=== PATIENT | female | born 1950 | race Caucasian/White ===

== ENCOUNTER 2021-03-09 13:40 | Outpatient (CLI) | payer MEDICARE, SELFPAY ==
--- NOTE | ~2021-03-09 | DEXA_ITS ---
Bone Density Report Name: Alicia Patel Age: 70 Sex: Female Ethnicity: White Date of : 1950 Indication: postmenopausal; Referring Provider: Cindi Thompson Study: Bone densitometry was performed. Exam Date: March 09, 2021 Accession number: [id number] Bone Density: Region BMD T-score Z-score Classification AP Spine (L1-L4) 1.149 0.9 3.0 Normal Femoral Neck (Left) 0.724 -1.1 0.6 Osteopenia Total Hip (Left) 0.900 -0.3 1.1 Normal Total Hip Bilateral Avg 0.881 -0.5 1.0 Normal Femoral Neck (Right) 0.725 -1.1 0.6 Osteopenia Total Hip (Right) 0.862 -0.7 0.8 Normal World Health Organization criteria for BMD impression classify patients as: Normal (T-score at or above -1.0), Osteopenia (T-score between -1.0 and -2.5), or Osteoporosis (T-score at or below -2.5). 10-year Fracture Risk(1): Major Osteoporotic Fracture 8.4% Hip Fracture 0.9% Reported Risk Factors: [place] (), Neck BMD=0.725, BMI=33.1 (1) FRAX(R) Version 3.08. Fracture probability calculated for an untreated patient. Fracture probability may be lower if the patient has received treatment. Previous Exams: Region Exam Age BMD T-score BMD Change BMD Change Date g/cm2 vs Baseline vs Previous AP Spine(L1-L4) 03/09/2021 70 1.149 0.9 -0.009(-0.8%)# -0.011(-0.9%)# 11/18/2010 60 1.160 1.0 0.002(0.2%) -0.032(-2.7%)* 06/28/2007 56 1.192 1.3 0.035(3.0%)* 0.035(3.0%)* 02/29/2004 53 1.157 1.0 Total Hip(Left) 03/09/2021 70 0.900 -0.3 -0.023(-2.5%)# -0.023(-2.5%) 06/06/2017 66 0.924 -0.2 0.000(0.0%)# 0.036(4.1%)# 11/18/2010 60 0.887 -0.4 -0.036(-3.9%)* -0.037(-4.1%)* 06/28/2007 56 0.925 -0.1 0.001(0.1%) 0.001(0.1%) 02/29/2004 53 0.924 -0.2 Total Hip(Right) 03/09/2021 70 0.862 -0.7 -0.009(-1.1%)# -0.041(-4.6%)* 06/06/2017 66 0.903 -0.3 0.032(3.6%)# 0.043(5.0%)# 11/18/2010 60 0.859 -0.7 -0.012(-1.3%) -0.006(-0.7%) 06/28/2007 56 0.865 -0.6 -0.006(-0.7%) -0.006(-0.7%) 02/29/2004 53 0.871 -0.6 *Denotes significance at 95% confidence level, LSC for AP Spine = 0.022 g/cm2, LSC for Total Hip = 0.027 g/cm2 Clinical Information Provided by Patient: Has used the following medications: Vitamin D, Calcium Patient maximum height was 64 Does not regularly consume dairy products Drinks caffeinated beverages Onset of menses at age 13 Number of children 2 Impression: The
--- NOTE | ~2021-03-09 | MM_ITS ---
EXAMINATION: MM screening festus BI w xiao HISTORY: Screening mammogram TECHNIQUE: Craniocaudal and mediolateral oblique 3-D tomosynthesis images were obtained and synthetic 2-D images were generated. CAD analysis was submitted and interpreted. COMPARISON: 04/06/2019, 12/02/2016, 12/07/2014 bilateral digital screening mammogram examinations BREAST PARENCHYMAL COMPOSITION: The breasts are almost entirely fatty. FINDINGS: There is no evidence of suspicious mass, calcification, or architectural distortion to sugg est malignancy in either breast. There has been no suspicious interval change. IMPRESSION: 1. No mammographic evidence of malignancy. 2. Recommend routine screening mammography in one year. BI-RADS Category 1: Negative Reviewed, dictated and finalized at location A.
== END 2021-03-09 13:41 | disposition home or self-care (01) ==
PROVIDERS: PCP Family Medicine; Visit Provider Physician Assistant
DX: Z12.31 Encounter for screening mammogram for malignant neoplasm of breast (principal); Z78.0 Asymptomatic menopausal state; M85.851 Other specified disorders of bone density and structure, right thigh; M85.852 Other specified disorders of bone density and structure, left thigh
CPT/HCPCS: 77063; 77067; 77080

== ENCOUNTER 2021-06-14 13:20 | Outpatient (RCR) | payer MEDICARE, SELFPAY ==
--- NOTE | 2021-06-14 14:43 | PTOPEVAL ---
PHYSICAL THERAPY EVALUATION Thank you for referring Alicia Patel to [facility].? Alicia was evaluated for the dx of BPPV. The patient is scheduled to be seen for therapy?prn (determined through phone discussion 1x a week) for up to 4 weeks. Please review, sign, date and return this plan of care RIMMA. I agree with and certify that the following plan of care is medically necessary. Referring Physician Date Attending Provider: Osbaldo Underwood MD *PT Outpatient Evaluation Start: 06/14/21 13:34 Freq: Status: Active Protocol: Document 06/14/21 13:35 MLV (Rec: 06/14/21 14:26 MLV [id number]) Therapy Assessment Status Assessment Status Evaluation Evaluation Information Problem Diagnosis vertigo Onset end of April Cause no event to provoke Additional Evaluation Detail The patient reports having hearing loss since 2013 and has had vertigo for a couple times a year, starting back in 2013. The patient was treated with steroids and recovered. This time, in April, the pt woke up with severe vertigo and feeling off balanced and it lasted a week. The patient took meclazine then saw Dr. Underwood on 05/31. The pt was given steroids and got better after them. This Saturday, the pt had symptoms return. The patient had nausea this time and symptoms lasted 1.5 days. The pt did the Jett technique to get relief. Pain Assessment Timing of Pain Assessment Timing of Pain Assessment Assessment Self Report Self Report Pain Level 0 Pain Score Pain Score 0: Self Report Cervical and Lumbar ROM Cervical ROM Reason Not Measured WFL/Left,WFL/Right Upper Extremity Range of Motion General Upper Extremity Range of Motion Reason Not Measured WFL/Left,WFL/Right Lower Extremity Range of Motion General Lower Extremity Range of Motion Reason Not Measured WFL/Left,WFL/Right Lower Extremity Muscle Strength Testing General Lower Extremity Strength Reason Not Measured WFL/Left,WFL/Right Gait Assessment Gait Pattern Assessment Gait Pattern No Deviations/Normal Vestibular Evaluation Vestibular Medical Information Past Vestibular History CVA,Head Injury,Headaches Medical History Comments fell and hit head 2018-no vertigo response with this
--- NOTE | 2021-06-21 12:01 | PCPTNOTE ---
Patient called today for update as planned with PT. Pt reports being symptom free this week. The patient instructed to stop exercise and monitor symptoms for a week. Pt to call in a week for another follow up, to call earlier if symptoms return. Plan to continue phone call monitoring of symptoms to assure full recovery.
--- NOTE | 2021-06-28 12:36 | PCPTNOTE ---
Patient called and reports to still be symptom free and will call again next week for further update. No skilled PT needs at this time.
--- NOTE | 2021-07-07 09:43 | PCPTNOTE ---
PHYSICAL THERAPY DISCHARGE Attending Provider: Osbaldo Trivedi MD Patient:Alicia Patel Date of :1950 Patient has not returned for any further treatments since 06/14/2021 due to being free of symptoms after her evaluation; therefore she will be discharged at this time. PT has spoke with pt on the phone weekly and remains symptom free, therefore, agreed that no further PT needed at this time. Patient?s initial visit was on 06/14/2021 13:30 and she had a total of 1 visit. The goals have been met. Thank you for referring this patient to [facility]. Please review, sign, date and return this discharge summary RIMMA. I have been updated about the patient's current status and I agree with discharge from the above service at this time. Referring Physician Date
== END 2021-07-07 12:34 | disposition home or self-care (01) ==
LOC: ANHPT 13:20
PROVIDERS: PCP Family Medicine; Visit Provider Otolaryngology
DX: H81.10 Benign paroxysmal vertigo, unspecified ear (principal); H81.09 Meniere's disease, unspecified ear; H81.20 Vestibular neuronitis, unspecified ear; R26.89 Other abnormalities of gait and mobility
CPT/HCPCS: 97110; 97161

== ENCOUNTER 2022-04-25 00:54 | Day surgery (SDC) | payer MEDICARE, OTHER, SELFPAY ==
[2022-04-03 13:51] VITALS: BMI 30.2
--- NOTE | 2022-04-24 16:15 | WPDANESEPPF ---
Anes - Initial Pre Proc Eval Procedure: Operation Date: 04/25/22 12:30 Proposed Procedures p Colonoscopy - Shelton Cain MD Date/Time: 04/24/22 16:15 Surgeon: Shelton Cain MD Pre Op Diagnosis: positive cologuard Patient Data Age: 71 Gender: F Height: 1.63 m Weight: 80 kg Allergies Allergy/AdvReac Type Severity Reaction Status Date / Time hydrocodone Allergy Unknown Nausea Verified 04/25/22 10:15 Home Medications Medication Instructions Recorded Confirmed Type aspirin 325 mg tablet 325 mg PO DAILY 09/29/19 04/25/22 History vit C 250 mg-vit E 90 mg-zinc 40 1 tablet PO BID 09/29/19 04/25/22 History mg-copper 1 [id number] capsule (PreserVision AREDS-2) meclizine 12.5 mg tablet 12.5 mg PO QID PRN dizziness #30 04/19/21 04/25/22 Rx tabs cholecalciferol (vitamin D3) 25 25 mcg PO DAILY 08/03/21 04/25/22 History mcg (1,000 unit) capsule cyclobenzaprine 10 mg tablet See Rx Instructions .Route 09/25/21 04/25/22 Rx .COMPLEX #90 tabs atorvastatin 10 mg tablet See Rx Instructions .Route 10/05/21 04/25/22 Rx .COMPLEX #90 tabs levothyroxine 100 mcg tablet See Rx Instructions .Route 10/05/21 04/25/22 Rx .COMPLEX #90 tabs doxazosin 4 mg tablet See Rx Instructions .Route 12/25/21 04/25/22 Rx .COMPLEX #90 tabs naproxen 500 mg tablet See Rx Instructions .Route 12/25/21 04/25/22 Rx .COMPLEX #180 tabs calcium carbonate 600 mg-vitamin 1 tablet PO DAILY 04/03/22 04/25/22 History D3 5 mcg (200 unit) tablet Patient hx anesthesia problems: none Family hx anesthesia problems: none Results Review: All pre-operative results and documents have been reviewed as part of the pre-operative evaluation. PENDING SALE TO [facility] Past Medical History Medical History (Updated 04/25/22 @ 10:21 by Angel Nugent MD) BPPV (benign paroxysmal positional vertigo) CVA (cerebral vascular accident) (~1998) Essential (primary) hypertension Hepatitis C antibody test negative (~08/12/17) Hypertension Hypothyroidism, unspecified Menieres disease Metabolic syndrome Mixed hyperlipidemia Obesity (BMI 30-39.9) Surgical History Surgical History History of adenoidectomy History of colonoscopy (~01/16/08) History of tonsillectomy Hx of cholecystectomy S/P D&C (status post dilation and curettage) 08-13-2019 Family History Family History Father Diabetes mellitus Family history of cardiovascular disease Family history of coronary artery disease Acute myocardial infarction Mother Cerebrovascular accident Diabetes mellitus Hypertension Sibling Diabetes mellitus Grandparent Diabetes mellitus Cerebrovascular accident Grandparent Cancer Social History Social History Smoking status: Never smoker Alcohol intake: never Substance use: never Substance use type: does not use Living arrangements: with family Spiritual care concerns: No Anes - Eval Final PreProcedure Day of Procedure 04/24/22 16:15 Patient weight: obese Heart: regular rate and rhythm Lungs: clear to auscultation and normal air movement Airway: Mallampati scale class II Neurological: alert and oriented Last oral intake: >/= 8 hours ASA classification: III Emergent: no Anesthetic plan: proceed Anesthesia type and monitoring: general GIVS Results Review: All pre-operative results and documents have been reviewed as part of the pre-operative evaluation. Informed Consent: The patient's anesthetic plan and its attendant risks and benefits were discussed with the patient/family/POA. Questions were solicited and answers provided to the satisfaction of the patient/family/POA.
[2022-04-25 10:18] VITALS: BP 149/86; PULSE 70; RESP 16; TEMP 36.4; O2SAT 98
[2022-04-25] MEDS: LACTATED RINGERS 1,000 ML 150 ML IV CONT (10:22)
--- NOTE | 2022-04-25 11:35 | PM.HPGS ---
History of Present Illness History of Present Illness Consent: Risks, benefits, and alternatives have been discussed and questions answered. Patient agrees to proceed with procedure. Chief complaint: positive cologuard Narrative: Alicia Patel is a 71 year old female with positive cologuard, last colonoscopy 12 years ago Review of Systems Constitutional: Constitutional: Denies headache(s) and Denies weakness Eyes: Eyes: Denies blurry vision ENT: Reports Normal hearing present, Denies headache(s) and Denies neck pain Cardiovascular: Cardiovascular: Denies chest pain and Denies dyspnea Respiratory: Respiratory: Denies dyspnea Gastrointestinal: Gastrointestinal: Reports no additional gastrointestinal complaints Genitourinary: Genitourinary: Denies dysuria Musculoskeletal: Musculoskeletal: Denies neck pain Integumentary/Breasts: Skin/Breast: Denies dry skin Neurologic: Reports Normal hearing present, Denies headache(s) and Denies weakness Psychiatric: Psychiatric: Denies anxiety Endocrine: Endocrine: Denies change in body appearance Hematologic/Lymphatic: Hematologic/Lymphatic: Denies easy bleeding Allergic/Immunologic: Allergic/Immunologic: Denies urticaria PMFSH Past Medical History Medical History (Updated 04/25/22 @ 10:21 by Angel Nugent MD) BPPV (benign paroxysmal positional vertigo) CVA (cerebral vascular accident) (~1998) Essential (primary) hypertension Hepatitis C antibody test negative (~08/12/17) Hypertension Hypothyroidism, unspecified Menieres disease Metabolic syndrome Mixed hyperlipidemia Obesity (BMI 30-39.9) Surgical History Surgical History History of adenoidectomy History of colonoscopy (~01/16/08) History of tonsillectomy Hx of cholecystectomy S/P D&C (status post dilation and curettage) 08-13-2019 Family History Family History Father Diabetes mellitus Family history of cardiovascular disease Family history of coronary artery disease Acute myocardial infarction Mother Cerebrovascular accident Diabetes mellitus Hypertension Sibling Diabetes mellitus Grandparent Diabetes mellitus Cerebrovascular accident Grandparent Cancer Social History Social History Smoking status: Never smoker Alcohol intake: never Substance use: never Substance use type: does not use Living arrangements: with family Spiritual care concerns: No Meds Home Medications and Allergies Home Medications Medication Instructions Recorded Confirmed Type aspirin 325 mg tablet 325 mg PO DAILY 09/29/19 04/25/22 History vit C 250 mg-vit E 90 mg-zinc 40 1 tablet PO BID 09/29/19 04/25/22 History mg-copper 1 [id number]-vzbdox capsule (PreserVision AREDS-2) meclizine 12.5 mg tablet 12.5 mg PO QID PRN dizziness #30 04/19/21 04/25/22 Rx tabs cholecalciferol (vitamin D3) 25 25 mcg PO DAILY 08/03/21 04/25/22 History mcg (1,000 unit) capsule cyclobenzaprine 10 mg tablet See Rx Instructions .Route 09/25/21 04/25/22 Rx .COMPLEX #90 tabs atorvastatin 10 mg tablet See Rx Instructions .Route 10/05/21 04/25/22 Rx .COMPLEX #90 tabs levothyroxine 100 mcg tablet See Rx Instructions .Route 10/05/21 04/25/22 Rx .COMPLEX #90 tabs doxazosin 4 mg tablet See Rx Instructions .Route 12/25/21 04/25/22 Rx .COMPLEX #90 tabs naproxen 500 mg tablet See Rx Instructions .Route 12/25/21 04/25/22 Rx .COMPLEX #180 tabs calcium carbonate 600 mg-vitamin 1 tablet PO DAILY 04/03/22 04/25/22 History D3 5 mcg (200 unit) tablet Allergies Allergy/AdvReac Type Severity Reaction Status Date / Time hydrocodone Allergy Unknown Nausea Verified 04/25/22 10:15 Vital Signs Vital Signs - 24 hr 04/25/22 10:18 Temperature 97.6 F Pulse Rate 70 Respiratory Rate 16 Blood Pressure 149/86 H Pulse Oximet
[2022-04-25 12:05] VITALS: BP 114/67; PULSE 66; RESP 18; O2SAT 93
[2022-04-25 12:15] VITALS: BP 115/73; PULSE 60; RESP 15; O2SAT 97
[2022-04-25 12:25] VITALS: BP 138/82; PULSE 59; RESP 20; O2SAT 100
== END 2022-04-25 12:40 | disposition home or self-care (01) ==
PROVIDERS: PCP Family Medicine; Visit Provider Internal Medicine Gastroenterology
PROC: 0DJD8ZZ Inspection of Lower Intestinal Tract, Via Natural or Artificial Opening Endoscopic (ICD-10-PCS; CPT 45378; principal; 2022-04-25 12:30)
DX: R19.5 Other fecal abnormalities (principal); D12.2 Benign neoplasm of ascending colon; D12.4 Benign neoplasm of descending colon; K57.30 Diverticulosis of large intestine without perforation or abscess without bleeding; K64.8 Other hemorrhoids; I10 Essential (primary) hypertension; E03.9 Hypothyroidism, unspecified; E78.2 Mixed hyperlipidemia; Z86.73 Personal history of transient ischemic attack (TIA), and cerebral infarction without residual deficits; E66.9 Obesity, unspecified; Z68.33 Body mass index [BMI] 33.0-33.9, adult; Z79.82 Long term (current) use of aspirin
CPT/HCPCS: 45385; 88305; J2704; J7120

== ENCOUNTER → 2023-06-04 11:03 | Outpatient (CLI) | payer MEDICARE, OTHER, SELFPAY ==
--- NOTE | ~2023-06-04 | XR_ITS ---
XR knee RT min 4V 06/04/2023 11:22 Indication: Right knee pain Procedure: 4 views right knee Comparison: No prior studies for comparison. Findings: There is mild tricompartment osteoarthritis of the right knee. No fracture, subluxation or dislocation. No significant joint effusion. No foreign bodies. Impression: 1: Mild tricompartment osteoarthritis of the right knee. Reviewed, dictated and finalized at location L. Impression: 1: Mild tricompartment osteoarthritis of the right knee.
== END ==
PROVIDERS: PCP Family Medicine; Visit Provider Family Medicine
DX: M17.11 Unilateral primary osteoarthritis, right knee (principal)
CPT/HCPCS: 73564

== ENCOUNTER 2023-09-23 15:07 | Outpatient (CLI) | payer MEDICARE, OTHER, SELFPAY ==
--- NOTE | ~2023-09-23 | MM_ITS ---
EXAMINATION: MM screening festus BI w xiao HISTORY: Screening TECHNIQUE: Craniocaudal and mediolateral oblique 3-D tomosynthesis images were obtained and synthetic 2-D images were generated. CAD analysis was submitted and interpreted. COMPARISON: Comparison to multiple prior studies sequentially, with oldest reviewed study dated 11/26. BREAST PARENCHYMAL COMPOSITION: Breast composed of scattered areas of fibroglandular density FINDINGS: There are developing asymmetries in the upper outer quadrant of the right breast, middle th ird. The left breast is stable without evidence for malignancy. IMPRESSION: 1. Developing right breast asymmetries. 2. Additional spot compression and mediolateral views with possible follow-up breast ultrasound recom mended. BI-RADS Category 0: Incomplete: Needs additional imaging evaluation. Reviewed, dictated and finalized at location A. SCOPIC INSTRUMENT MECHANIC IMPRESSION: 1. Developing right breast asymmetries. 2. Additional spot compression and mediolateral views with possible follow-up b reast ultrasound recommended. BI-RADS Category 0: Incomplete: Needs additional imaging evaluation.
== END 2023-09-23 15:08 | disposition home or self-care (01) ==
LOC: ANHIMG 15:11
PROVIDERS: PCP Family Medicine; Visit Provider Family Medicine
DX: Z12.31 Encounter for screening mammogram for malignant neoplasm of breast (principal); R92.8 Other abnormal and inconclusive findings on diagnostic imaging of breast
CPT/HCPCS: 77063; 77067

== ENCOUNTER 2023-11-08 09:42 | Outpatient (CLI) | payer MEDICARE, OTHER, SELFPAY ==
--- NOTE | ~2023-11-08 | MR_ITS ---
MRI of the right calf CLINICAL HISTORY: Pain TECHNIQUE: Axial T1-weighted and STIR images, coronal T1-weighted and STIR images, and sagittal T1-we ighted and STIR images were acquired. FINDINGS: Bone marrow signals are unremarkable. No evidence of fracture, bone marrow edema, or osteit is. No periosteal reaction. No evidence for medial tibial stress syndrome. Visualized musculature in the calf is unremarkable. No muscle atrophy or edema identified. Visualized tendons appear intact. Subcutaneous soft tissues are unremarkable. No abnormal mass lesion or fluid collection identified. IMPRESSION: Unremarkable exam. Reviewed, dictated and finalized at location . QUALITY ENGINEER IMPRESSION: Unremarkable exam.
--- NOTE | ~2023-11-08 | MR_ITS ---
EXAMINATION: MR knee RT wo con DATE: 11/08/2023 10:36 INDICATION: Right knee pain TECHNIQUE: Magnetic resonance imaging (MRI) of the right knee was performed without intravenous contr ast. Sequences included coronal PD-weighted FSE, coronal PD-weighted FS FSE, sagittal T2-weighted FS E, sagittal PD-weighted FS FSE and axial PD weighted fat saturated FSE. COMPARISON: None. FINDINGS: Medial compartment: Complex tear at the posterior horn of the medial meniscus which includes both radial and longitudinal components and involving at least the inner two thirds of the meniscus. Mild partial-thickness carti casey loss and chondral surface irregularity along the anterior to central weightbearing medial femora l condyle and along the anterior medial tibial plateau. There are couple small but with deeper chondr al fissure involving greater than 50% the cartilage thickness at the anterior weightbearing medial fe moral condyle. Lateral compartment: Lateral meniscus is normal. Articular cartilage is normal. Patellofemoral compartment: Deep chondral ulceration at the patellar apical ridge and medial facet with minimal underlying cortic al irregularity and a couple tiny foci of subarticular edema-like signal change. A severe partial thi ckness cartilage loss but with deep fissuring and additional small focus of subarticular edema-like s ignal change at the medial side of the lateral patellar facet. Partial-thickness chondral ulceration involving greater than 50% the cartilage thickness at the inferior aspect of the medial trochlea and less severe but with some superimposed chondral fissuring at the trochlear groove. Ligaments and tendons: Anterior and posterior cruciate ligaments are normal. The medial collateral ligament and fibular maribel ateral ligament complex are normal. Moderate size enthesophyte at the patellar insertion of the other jones normal quadriceps tendon. Patellar tendon is normal. The visualized medial and lateral hamstring tendons as well as the iliotibial band are normal. Fluid: Minimal right knee joint effusion. 9 x 8 x 5 mm loose osteochondral body in the recess anterior to th e intercondylar notch. Osseous/other: Small multilobulated intraosseous ganglion cyst in the proximal tibia which appears to arise from the region of the posterior root of the medial meniscus. No fracture or pathologic marrow replacing proc ess. IMPRESSION: 1. Complex tear of the posterior horn of the medial meniscus. 2. 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 3. Mild osteoarthritis with moderate grade chondromalacia in the medial compartment. Reviewed, dictated and finalized at location A. SPEC IMPRESSION: 1. Complex tear of the posterior horn of the medial meniscus. 2. 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 3. Mild osteoarthritis with moderate grade chondromalacia in the medial compart ment.
== END 2023-11-08 09:43 ==
LOC: GOSHIMG 09:43
PROVIDERS: PCP Family Medicine; Visit Provider Family Medicine
DX: R29.898 Other symptoms and signs involving the musculoskeletal system (principal); S83.231A Complex tear of medial meniscus, current injury, right knee, initial encounter; M17.11 Unilateral primary osteoarthritis, right knee; M22.41 Chondromalacia patellae, right knee; X58.XXXA Exposure to other specified factors, initial encounter
CPT/HCPCS: 73718; 73721

== ENCOUNTER → 2023-11-12 14:18 | Outpatient (CLI) | payer MEDICARE, OTHER, SELFPAY ==
--- NOTE | ~2023-11-12 | US_ITS ---
EXAMINATION: US soft tissue UE DATE: 11/12/2023 14:33 INDICATION: Left upper extremity lump. TECHNIQUE: Multiple grayscale and Doppler ultrasound images of the left upper extremity were obtained . COMPARISON: None FINDINGS: In the patient's area of concern in left upper arm, there is ill-defined 4 mm mass that is isoechoic to surrounding subcutaneous fat. IMPRESSION: 1. Ill-defined 4 mm subcutaneous mass in left upper arm, likely inflammation or a lipoma. Reviewed, dictated and finalized at location A. NING OFFICER
== END ==
PROVIDERS: PCP Family Medicine; Visit Provider Family Medicine
DX: R22.32 Localized swelling, mass and lump, left upper limb (principal)
CPT/HCPCS: 76882

== ENCOUNTER 2025-01-26 12:43 | Outpatient (CLI) | payer MEDICARE, OTHER, SELFPAY ==
--- NOTE | ~2025-01-26 | DEXA_ITS ---
Bone Density Report Name: PEIPTO MASSEY Age: 74 Sex: Female Ethnicity: White Date of : 1950 Indication: postmenopausal; screening for osteoporosis; Referring Provider: JT STINSON Study: Bone densitometry was performed. Exam Date: January 26, 2025 Accession number: [id number] Bone Density: Region BMD T-score Z-score Classification AP Spine(L1-L4) 1.252 1.9 4.2 Normal Femoral Neck (Left) 0.675 -1.6 0.4 Osteopenia Total Hip (Left) 0.902 -0.3 1.4 Normal Femoral Neck (Right) 0.653 -1.8 0.2 Osteopenia Total Hip (Right) 0.843 -0.8 0.9 Normal Total Hip Mean 0.872 -0.6 1.2 Normal World Health Organization criteria for BMD impression classify patients as: Normal (T-score at or above -1.0), Osteopenia (T-score between -1.0 and -2.5), or Osteoporosis (T-score at or below -2.5). 10-year Fracture Risk(1): Major Osteoporotic Fracture 11% Hip Fracture 2.2% Reported Risk Factors: [place] (), Neck BMD=0.653, BMI=29.6 (1) FRAX(R) Version 3.08. Fracture probability calculated for an untreated patient. Fracture probability may be lower if the patient has received treatment. Previous Exams: Region Exam Age BMD T-score BMD Change BMD Change Date g/cm2 vs Baseline vs Previous AP Spine (L1-L4) 01/26/2025 74 1.252 1.9 0.103 (9.0%)* 0.103 (9.0%)* 03/09/2021 70 1.149 0.9 Total Hip(Left) 01/26/2025 74 0.902 -0.3 -0.022 (-2.3%) 0.002 (0.2%) 03/09/2021 70 0.900 -0.3 -0.023 (-2.5%) -0.023 (-2.5%) 06/06/2017 66 0.924 -0.2 Total Hip(Right) 01/26/2025 74 0.843 -0.8 -0.060 (-6.6%) -0.019 (-2.2%) 03/09/2021 70 0.862 -0.7 -0.041 (-4.6%) -0.041 (-4.6%) 06/06/2017 66 0.903 -0.3 *Denotes significance at 95% confidence level, LSC for AP Spine = 0.022 g/cm2, LSC for Total Hip = 0.027 g/cm2 Clinical Information Provided by Patient: Has used the following medications: Vitamin D, Calcium Patient maximum height was 64 No regular weight bearing exercise Does not regularly consume dairy products Drinks caffeinated beverages Onset of menses at age 13 Number of children 2 Impression: The patient has low bone mass, based on the Right Femoral Neck T-score. The patient has an estimated ten-year risk of hip fracture of 2.2% and an estimated ten-year risk of major fracture of 11%, based on the WHO FRAX algorithm. No significant bone loss was observed. Discussion: BONE DENSITY IS LOW AT ONE OR MORE SKELETAL SITES. This patient's lowest T-score is low at one or more skeletal sites. It meets the World Health Organization's (WHO) criteria for ?low bone mass? (T-score between -1.0 and -2.5). The patient's 10-year risk of fracture as calculated by FRAX is less than the threshold where pharmacological therapy is recommended by the National Osteoporosis Foundation (NOF). However, all treatment decisions require clinical judgment and consideration of individual patient factors, including patient preferences, comorbidities, previous drug use, risk factors not captured in the FRAX model (e.g., frailty, falls, vitamin D deficiency, increased bone turnover, interval significant decline in bone density) and possible under or overestimation of fracture risk by FRAX. The patient should follow a healthful lifestyle (good nutrition with adequate calcium and vitamin D, and appropriate weight-bearing exercise). Follow-Up: Consider repeating this study in 2 to 3 years to reassess this patient's status, or sooner if there is some new clinical indication. Reported by: TYRA on 01/26/2025 1:38:00 PM. Reviewed, dictated and finalized at location [facility] [place] [facility]ISION[facility]
--- OUTSIDE RECORDS SUMMARY | 2025-01-26 13:34 | XMS_ITS | Referral Summary ---
Author Organization [facility] Address [address] [place] [id number] Care Team Providers [place] Name Role Phone Chelo Holt DO Primary Care Provider [phone] Ortiz Gallardo MD Unavailable Encounters Date Type Department Care Team Description 01/22/[address] [facility] Surgery [address] [place] [id number] Jaz Reyes MD PhD Ductal carcinoma in situ (DCIS) of right breast (Primary Dx) 01/15/2025 Telephone [facility] Advanced Medicine Breast Imaging [facility] Advanced Medicine ([facility]) [address] [place] [id number] Adriane Mai Test Results (Right breast biopsy 01/13/25 ) 01/13/2025 11:00 AM CDT - 01/13/2025 11:59 PM CDT Hospital Encounter [facility] Imaging and Radiology [address] [place] [address] Abnormal mammogram Discharge Disposition: Discharge to home or self care 01/13/2025 10:12 AM CDT - 01/13/2025 11:59 PM CDT Hospital Encounter [facility] ` [address] [place] [id number] Abnormal mammogram Discharge Disposition: Discharge to home or self care 12/10/2024 8:05 AM RESIDENTIAL CARPET INSTALLER - 12/10/2024 11:59 PM RESIDENTIAL CARPET INSTALLER Hospital Encounter [facility] ` [address] [place] [phone] Unspecified lump in the right breast, upper outer quadrant Discharge Disposition: Discharge to home or self care 12/10/2024 8:05 AM RESIDENTIAL CARPET INSTALLER - 12/10/2024 11:59 PM [facility] Hospital Encounter [facility] Imaging and Radiology [address] [place] [phone] Unspecified lump in the right breast, upper outer quadrant Discharge Disposition: Discharge to home or self care 11/10/2024 10:14 AM RESIDENTIAL CARPET INSTALLER - 11/10/2024 11:59 PM [facility] Hospital Encounter [facility] Imaging and Radiology [address] [place] [phone] Visit for screening mammogram Discharge Disposition: Discharge to home or self care from Last 3 Months Allergies Active Allergy Reactions Criticality Noted Date Comments Hydrocodone-Acetaminophen Vomiting Low 01/16/2024 Medications atorvastatin (LIPITOR) 10 mg tabletIndications:h yperlipidemia Take 1 tablet (10 mg total) by mouth with lunch 4 Active doxazosin (CARDURA) 4 mg tabletIndications:h ypertension Take 1 tablet (4 mg total) by mouth nightly 4 Active levothyroxine (SYNTHROID) 88 mcg tabletIndications:h ypothyroidism Take 1 tablet (88 mcg total) by mouth every morning 4 Active meclizine (ANTIVERT) 12.5 mg tabletIndications:V ertigo Take 1 tablet (12.5 mg total) by mouth 3 (three) times a day as needed for dizziness or nausea 4 Active cyclobenzaprine (FLEXERIL) 10 mg tabletIndications:M uscle Spasm Take 1 tablet (10 mg total) by mouth 3 (three) times a day as needed for muscle spasms 4 Active cholecalciferol (VITAMIN D-3) [address]2204 unit capsuleIndications: Vitamin D Deficiency Take 1 capsule (10,000 Units total) by mouth every morning Active calcium carbonate-vitamin D3 1,250mg (500mg elemental) - 5 mcg (200 units) per tabletIndications:P revention of Vitamin D Deficiency Take 1 tablet by mouth every morning Active vit A/vit C/vit E/zinc/copper (PRESERVISION AREDS ORAL)Indications:mclaughlin pplement Take 1 tablet/capsul e by mouth 2 (two) times a day Active aspirin 81 mg chewable tablet Beginning on 03/21/24, take Aspirin 81mg daily. 4 Active acetaminophen (TYLENOL) 325 mg tabletIndications:P ain Take 2 tablets (650 mg total) by mouth every 6 (six) hours as needed for pain 4 Active docusate sodium (COLACE) 100 mg capsuleIndications: constipation,Stool Softener Take 1 capsule (100 mg total) by mouth 2 (two) times a day 30 capsule 4 Active lisinopriL (PRINIVIL,ZESTRIL) 5 mg tablet Take 1 tablet (5 mg total) by mouth daily 30 tablet 4 Active clopidogreL (PLAVIX) 75 mg tabletIndications:C erebral Thromboembolism Prevention Take 1 tablet (75 mg total) by mouth daily for 21 days . (Stop taking after last dose on 03/20/24.) 21 tablet 4 Active FLUoxetine (PROzac) 20 mg capsule Take 1 capsule (20 mg total) by mouth daily 30 capsule 11 4 025 Active gabapentin (NEURONTIN) 100 mg capsule TAKE 1 CAPSULE(100 MG) BY MOUTH THREE TIMES DAILY 90 capsule 5 5 Active Active Problems Problem Noted Date Diagnosed Date Acute CVA (cerebrovascular accident) 08/19/2024 Aneurysm 03/13/2024 Immunizations Immunization Administration Dates Next Due Influenza, Quadrivalent, Rec ombinant, Egg Free, Preservative Free, Intramuscular 07/30/2019 Influenza, Quadrivalent, Spl it, Preservative Free, Intramuscular 07/11/2018 Pneumococcal Polysaccharide PPV23 04/21/2018 Tdap 03/03/2019 Social History Tobacco Use Types Packs/Day Years Used Date Smoking Tobacco: Never Smokeless Tobacco: Never Tobacco Cessation:Counseling Given: Not Answered [facility] Utilities Answer Date Recorded In the past 12 months has e [employer], [employer], oil, or water [employer] threatened to shut off services in your home? No 08/20/2024 Social Connection and Isolat ion Panel [NHANES] Answer Date Recorded In a typical week, how many times do you talk on the phone with family, friends, or neighbors? More than three times a week 08/20/2024 How often do you get togethe r with friends or relatives? More than three times a week 08/20/2024 How often do you attend chur ch or yarsanism services? Never 08/20/2024 Do you belong to any clubs o r organizations such as adventist groups, unions, fraternal or athletic groups, or school groups? No 08/20/2024 How often do you attend meet ings of the clubs or organizations you belong to? Never 08/20/2024 Are you , , di vorced, , never , or living with a partner? 08/20/2024 AUDIT-C Answer Date Recorded Q1: How often do you have a drink containing alcohol? Never 04/21/2024 Q2: How many drinks containi ng alcohol do you have on a typical day when you are drinking? Patient does not drink Q3: How often do you have si x or more drinks on one occasion? Never 04/21/2024 Overall Financial Resource Strain (CARDIA) Answe r Date Recorded How hard is it for you to pa y for the very basics like food, housing, medical care, and heating? Not hard at all 08/20/2024 PHQ-2 Answer Date Recorded PHQ-2 Total Score (If total score is 3 or more points, staff should administer the PHQ-9) 0 08/20/2024 Hunger Vital Sign Answer Date Recorded Within the past 12 months, y ou worried that your food would run out before you got the money to buy more. Never true 08/20/20 24 Within the past 12 months, t he food you bought just didn't last and you didn't have money to get more. Never true 08/20/2024 PRAPARE - Transportation Answer Date Re corded In the past 12 months, has l ack of transportation kept you from medical appointments or from getting medications? No 04/2024 In the past 12 months, has l ack of transportation kept you from meetings, work, or from getting things needed for daily living? No 08/20/2024 PHQ-9 Answer Date Recorded PHQ-9 Total Score 0 08/20/2024 Housing Stability Vital Sign Answer Te e Recorded In the last 12 months, was t here a time when you were not able to pay the mortgage or rent on time? No 08/20/2024 In the past 12 months, how m any times have you moved where you were living? 0 08/20/2024 Homeless in the Last Year Not on file 2023 Personal Safety Answer Date Recorded Have you ever been in or are you currently in a harmful physical or emotional relationship or is someone making you feel afraid or unsafe? Denies 08/20/2024 Comments No Sex and Gender Information Value Date Recorded Sex Assigned at Not on file Legal Sex Female 9:44 AM RESIDENTIAL CARPET INSTALLER Gender Identity Female 01/15/2024 4:26 PM CDT Sexual Orientation Straight 01/15/2024 4: 26 PM CDT Last Filed Vital Signs Vital Sign Reading Time Taken Comments Blood Pressure 143/71 09/09/2024 10:31 AM RESIDENTIAL CARPET INSTALLER Pulse 71 09/09/2024 10:31 AM RESIDENTIAL CARPET INSTALLER Temperature 36.6 C (97.8 F) 08/20/2024 12:47 PM RESIDENTIAL CARPET INSTALLER Respiratory Rate 20 08/20/2024 12:47 PM RESIDENTIAL CARPET INSTALLER Oxygen Saturation 94% 08/20/2024 12:47 PM RESIDENTIAL CARPET INSTALLER Inhaled Oxygen Concentration - - Weight 81.6 kg (180 lb) 09/09/2024 10:31 AM RESIDENTIAL CARPET INSTALLER Height 162.6 cm (5' 4 ) 09/09/2024 10:31 AM RESIDENTIAL CARPET INSTALLER Body Mass Index 30.9 09/09/2024 10:31 AM RESIDENTIAL CARPET INSTALLER Plan of Treatment Not on file Medical Devices Implanted Type Area Shoemaker Apprentice Device Identifier Shelf Expiration Date Model / Serial / Lot C9 Inc. System Embolization Web Single Layer 8mm X 3mm W2-8-3 - [id number] Implanted:Qty: 1 on 03/13/2024 by Rocael Rivera MD at [facility] [employer] 09/12/2027 W2- 8-3 / / [id number] [employer] Ecrebo Device 5fr Closure Celt Acd Vascular Sterile Latex Free Disposable Frances Kclt-05 - [id number] Implanted:Qty: 1 on 08/19/2024 by Gallito Disla MD at [facility] [employer] 12/05/2026 KCLT-05 / / [id number] Procedures Procedure Name Priority Date/Time Associated Diagnosis Comments SURGICAL PATHOLOGY Routine 01/13/2025 1: 48 PM CDT Abnormal mammogram BRENT POST CLIP PLACEMENT RIGHT Schedule Routine, Read Routine (OP Routine) 01/13/2025 11:48 AM CDT Abnormal mammogram US GUIDED BREAST BIOPSY RIGHT Schedule Routine, Read Routine (OP Routine) 01/13/2025 11:39 AM CDT Abnormal mammogram US BREAST RIGHT LIMITED Schedule Routine, Read Routine (OP Routine) 12/10/2024 9:24 AM RESIDENTIAL CARPET INSTALLER Unspecified lump in the right breast, upper outer quadrant DIAGNOSTIC MAMMOGRAM RIGHT W BRENT Schedule Routine, Read Routine (OP Routine) 12/10/2024 8:23 AM RESIDENTIAL CARPET INSTALLER Unspecified lump in the right breast, upper outer quadrant SCREENING MAMMOGRAM BILATERAL W BRENT Schedule Routine, Read Routine (OP Routine) 11/10/2024 10:49 AM RESIDENTIAL CARPET INSTALLER Visit for screening mammogram from Last 3 Months Results * Surgical pathology (01/13/2025 1:48 PM CDT) Tissue (Breast biopsy, needle core) 01/13/2025 11:35 AM CDT Narrative PATHOLOGY CH - 01/15/2025 12:19 PM CDT [facility] results best viewed via link to PDF [facility] Department of Pathology [address] [place] [id number] Note to Patients: This report may contain a detailed description of human tissue sent by a health care provider to the laboratory for pathologic evaluation. The content of this report is essential for diagnosis and may provide important critical findings. This information may be unfamiliar to patients to review without a medical professional present. It is advised that the patient review this report in the presence of a health care provider who can answer questions and explain the details. Final Report with Addendum Patient Name: ALICIA PATEL Address: [address] [place] [id number] Gender: F : 1950 (Age: 74) Service: Location: Hospital #: [id number] Patient Type: Ancillary Taken: 01/13/2025 Received: 01/13/2025 Accessioned: 01/13/2025 Reported: 01/15/2025 Physician(s):Jose Verde DO Diagnosis: A. 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 Report Electronically Reviewed and Signed Out By Caroline Vera M.D. 01/15/2025 12:19:12 Procedure/Addenda: Breast Cancer Prognostic Panel Interpretation Breast Biomarker Reporting Template Test(s) Performed: ER, PgR Estrogen Receptor (ER) Status: Positive Percentage of Cells with Nuclear Positivity: 91-100% Average Intensity of Staining: Strong Test Type: Laboratory-developed test Primary Antibody: SP1 Scoring System: Jay Proportion Score: 5 Intensity Score: 3 Total Jay Score: 8 Progesterone Receptor (PgR) Status: Positive Percentage of Cells with Nuclear Positivity: 91-100% Average Intensity of Staining: Strong Test Type: Laboratory-developed test Primary Antibody: 1E2 Scoring System: Jay Proportion Score: 5 Intensity Score: 3 Total Jay Score: 8 Cold Ischemia and Fixation Times: Meet requirements specified in latest version of the ASCO / CAP Guidelines Testing Performed on Block Number(s): A1 METHODS Fixative: Formalin [facility] VERSION: Breast Biomarker Reporting 1.5.0.1 Arnulfo Cedillo M.D.Report Electronically Reviewed and Signed Out By Arnulfo Cedillo M.D. 01/19/2025 17:48:38 Specimen(s) Received: A: Right breast cores 9:00 6CMFN Microscopic Description: Core biopsy material demonstrates mildly to moderately pleomorphic ductal epithelial cells arranged in cribriform and papillary patterns against a hyalinized stroma [facility] IHC stain with appropriate control also reviewed demonstrates a surrounding myoepithelial layer around much of the periphery of the cellular nests. In summary, biopsy material demonstrates a ductal carcinoma with cribriform and papillary features. The differential diagnosis includes encapsulated papillary carcinoma and solid papillary carcinoma as well as others. Additionally, the entire lesion requires evaluation to exclude a definitively invasive component. ER/OR testing will be obtained and reported in an addendum. Clinical History: Abnormal mammogram Gross Description: The specimen is submitted in a single formalin filled container labeled ALICIA PATEL and right breast cores 9 o'clock 6 cm FN . It is 5 cores of fibrofatty tissue between 0.2 and 0.8 cm. All in one cassette. Removed from patient on 01/13/2025 at 11:35 o'clock and placed in formalin at 11:35 o'clock, removed from formalin 20:50 o'clock. Formalin fixation times are in compliance with ASCO/CAP guidelines. Myah Nick R.N., P.ASylvester/Arnulfo Cedillo M.D. REPORT IMAGES AND SCANNED DOCUMENTS, IF INCLUDED, ONLY VIEWABLE IN PDF VERSION OF REPORT The performance characteristics of some immunohistochemical stains, fluorescence in-situ hybridization tests and immunophenotyping by flow cytometry cited in this report (if any) were determined by the Surgical Pathology Department at [facility] as part of an ongoing it quality analyst program and in compliance with federally mandated regulations drawn from the Clinical Laboratory Improvement Act of 1988 (CLIA '88). Some of these tests rely on the use of analyte specific reagents and are subject to specific labeling requirements by the US Food and Drug Administration. Such diagnostic tests may only be performed in a facility that is certified by the Department of Health and Human Services as a high complexity laboratory under CLIA '88. The FDA has determined that such clearance or approval is not necessary. This test is used for clinical purposes. It should not be regarded as investigational or for research. Nevertheless, federal rules concerning the medical use of analyte specific reagents require that the following disclaimer be attached to the report: This test was developed and its performance characteristics determined by the Surgical Pathology Department [facility]. It has not been cleared or approved by the U. S. Food and Drug Administration. Note for decalcified specimens: This assay has not been validated on decalcified tissues. Results should be interpreted with caution given the possibility of false negativity on decalcified specimens Chelo Holt DO LAB PATHOLOGY ORDERABLES F inal Result PATHOLOGY [address] [place] [address] * Brent Post Clip Placement Right (01/13/2025 11:48 AM CDT) Anatomical Region Laterality Modality Breast Right Mammography 01/13/2025 11:5 2 AM CDT Addenda Addendum by Mary Perez MD on 01/18/2025 4:00 PM CDT ADDENDUM: Pathology from biopsy of the right breast showed ductal carcinoma in situ; please refer to pathology report for details. Pathology is malignant and concordant. Surgical management and MRI (unless there are contraindications to MRI) are recommended. Results and recommendations will be discussed with the patient by [facility] or referring provider staff and will be separately documented in the medical record. Electronically signed by: Mary Perez M.D. Impressions 01/13/2025 11:52 AM CDT Successful core needle biopsy of the RIGHT breast. Pathology is pending. ASSESSMENT: Post Procedure Mammograms for Marker Placement Electronically signed by: Mary Perez M.D. Narrative 01/13/2025 11:52 AM CDT EXAMINATION: RIGHT BREAST CORE BIOPSY UTILIZING SONOGRAPHIC GUIDANCE, PLACEMENT OF A BIOPSY TISSUE MARKER CLIP, AND RIGHT FULL FIELD DIGITAL MAMMOGRAM WITH DIGITAL BREAST TOMOSYNTHESIS HISTORY: Abnormal breast imaging. 74-year-old woman with screening detected right breast focal asymmetry in which an oval hypoechoic mass was noted within the region on ultrasound. Ultrasound guided core needle biopsy is requested to evaluate for malignancy. COMPARISON: 12/10/2024 BREAST PARENCHYMAL COMPOSITION: There are scattered areas of fibroglandular density. PROCEDURE AND FINDINGS: The risks and potential benefits of the procedures were discussed with the patient and written informed consent was obtained. After sterile preparation of the skin, 1% lidocaine and 2% lidocaine with epinephrine were utilized for local anesthesia. A small skin incision was made with a #11 scalpel blade. A 14G spring-loaded biopsy needle was then advanced through the skin incision to the edge of the lesion of interest at the 9 o'clock position 6 cm from the nipple from a lateral approach utilizing sonographic guidance. A total of 3 tissue cores were obtained through the lesion. A [place]-shaped tissue marker clip was then placed at the biopsy site. Hemostasis was achieved. Dermabond bandage and an ice pack were applied. There was no evidence of significant immediate complication. The patient was given verbal as well as written post procedural instructions prior to release from the department. The tissue cores were submitted to surgical pathology in formalin for histologic analysis. A two-view RIGHT digital mammogram, including digital breast tomosynthesis, obtained post procedure demonstrates that the tissue marker clip is in expected position. Procedure Note Mary Perez MD - 01/13/2025 EXAMINATION: RIGHT BREAST CORE BIOPSY UTILIZING SONOGRAPHIC GUIDANCE, PLACEMENT OF A BIOPSY TISSUE MARKER CLIP, AND RIGHT FULL FIELD DIGITAL MAMMOGRAM WITH DIGITAL BREAST TOMOSYNTHESIS HISTORY: Abnormal breast imaging. 74-year-old woman with screening detected right breast focal asymmetry in which an oval hypoechoic mass was noted within the region on ultrasound. Ultrasound guided core needle biopsy is requested to evaluate for malignancy. COMPARISON: 12/10/2024 BREAST PARENCHYMAL COMPOSITION: There are scattered areas of fibroglandular density. PROCEDURE AND FINDINGS: The risks and potential benefits of the procedures were discussed with the patient and written informed consent was obtained. After sterile preparation of the skin, 1% lidocaine and 2% lidocaine with epinephrine were utilized for local anesthesia. A small skin incision was made with a #11 scalpel blade. A 14G spring-loaded biopsy needle was then advanced through the skin incision to the edge of the lesion of interest at the 9 o'clock position 6 cm from the nipple from a lateral approach utilizing sonographic guidance. A total of 3 tissue cores were obtained through the lesion. A [place]-shaped tissue marker clip was then placed at the biopsy site. Hemostasis was achieved. Dermabond bandage and an ice pack were applied. There was no evidence of significant immediate complication. The patient was given verbal as well as written post procedural instructions prior to release from the department. The tissue cores were submitted to surgical pathology in formalin for histologic analysis. A two-view RIGHT digital mammogram, including digital breast tomosynthesis, obtained post procedure demonstrates that the tissue marker clip is in expected position. IMPRESSION: Successful core needle biopsy of the RIGHT breast. Pathology is pending. ASSESSMENT: Post Procedure Mammograms for Marker Placement Electronically signed by: Mary Perez M.D. Chelo Tahmina Vernace DO IMG MAMMO PROCEDURES Edite d Result - Final * US Guided Breast Biopsy Right (01/13/2025 11:39 AM CDT) Anatomical Region Laterality Modality Breast Right Ultrasound 01/13/2025 11:5 2 AM CDT Addenda Addendum by Mary Perez MD on 01/18/2025 4:00 PM CDT ADDENDUM: Pathology from biopsy of the right breast showed ductal carcinoma in situ; please refer to pathology report for details. Pathology is malignant and concordant. Surgical management and MRI (unless there are contraindications to MRI) are recommended. Results and recommendations will be discussed with the patient by [facility] or referring provider staff and will be separately documented in the medical record. Electronically signed by: Mary Perez M.D. Impressions 01/13/2025 11:52 AM CDT Successful core needle biopsy of the RIGHT breast. Pathology is pending. ASSESSMENT: Post Procedure Mammograms for Marker Placement Electronically signed by: Mary Perez M.D. Narrative 01/13/2025 11:52 AM CDT EXAMINATION: RIGHT BREAST CORE BIOPSY UTILIZING SONOGRAPHIC GUIDANCE, PLACEMENT OF A BIOPSY TISSUE MARKER CLIP, AND RIGHT FULL FIELD DIGITAL MAMMOGRAM WITH DIGITAL BREAST TOMOSYNTHESIS HISTORY: Abnormal breast imaging. 74-year-old woman with screening detected right breast focal asymmetry in which an oval hypoechoic mass was noted within the region on ultrasound. Ultrasound guided core needle biopsy is requested to evaluate for malignancy. COMPARISON: 12/10/2024 BREAST PARENCHYMAL COMPOSITION: There are scattered areas of fibroglandular density. PROCEDURE AND FINDINGS: The risks and potential benefits of the procedures were discussed with the patient and written informed consent was obtained. After sterile preparation of the skin, 1% lidocaine and 2% lidocaine with epinephrine were utilized for local anesthesia. A small skin incision was made with a #11 scalpel blade. A 14G spring-loaded biopsy needle was then advanced through the skin incision to the edge of the lesion of interest at the 9 o'clock position 6 cm from the nipple from a lateral approach utilizing sonographic guidance. A total of 3 tissue cores were obtained through the lesion. A [place]-shaped tissue marker clip was then placed at the biopsy site. Hemostasis was achieved. Dermabond bandage and an ice pack were applied. There was no evidence of significant immediate complication. The patient was given verbal as well as written post procedural instructions prior to release from the department. The tissue cores were submitted to surgical pathology in formalin for histologic analysis. A two-view RIGHT digital mammogram, including digital breast tomosynthesis, obtained post procedure demonstrates that the tissue marker clip is in expected position. us Chelo Holt DO [facility] MAMMO PROCEDURES Edite d Result - Final * US Breast Right Limited (12/10/2024 9:24 AM RESIDENTIAL CARPET INSTALLER) Anatomical Region Laterality Modality Breast Right Ultrasound 12/10/2024 9:58 AM RESIDENTIAL CARPET INSTALLER Impressions 12/10/2024 9:58 AM RESIDENTIAL CARPET INSTALLER Developing focal asymmetry in the upper outer right breast. On targeted ultrasound there is a oval hypoechoic mass identified at 9:00 about 6 cm from the nipple. Further evaluation with ultrasound-guided biopsy is recommended. Results and recommendations were discussed with the patient at the conclusion of the exam and all questions answered. Patient with the practice nurse will be scheduled to return to the breast center for right breast biopsy. OVERALL FINAL ASSESSMENT: SUSPICIOUS. BI-RADS Category 4B: Moderate suspicion for malignancy. RECOMMENDATION: Ultrasound-guided biopsy of the right breast. Electronically signed by: EVA DAVENPORT MD Narrative 12/10/2024 9:58 AM RESIDENTIAL CARPET INSTALLER EXAMINATION: RIGHT UNILATERAL DIGITAL DIAGNOSTIC MAMMOGRAM AND DIGITAL BREAST TOMOSYNTHESIS; RIGHT BREAST SONOGRAM HISTORY: 74-year-old female called back from screening mammogram for developing focal asymmetry upper outer right breast. Patient has had some reported weight loss over the last few years which was intentional. COMPARISON: Multiple priors dating back to 2019 TECHNIQUE: Full field digital mammographic views of the RIGHT breast were performed, including computer aided detection (CAD) and digital breast tomosynthesis (DBT). Directed ultrasound evaluation of the RIGHT breast was performed. BREAST PARENCHYMAL COMPOSITION: There are scattered areas of fibroglandular density. MAMMOGRAM FINDINGS: Focal asymmetry persists in the upper outer right breast on spot compression images. This has a wispy appearance on the lateral view with a more focal oval mass identified around 9:00 at mid depth. SONOGRAM FINDINGS: Targeted ultrasound demonstrates mixed echogenicity tissue within the right breast from 9-10:00. At 9:00, 6 cm from the nipple there is an oval hypoechoic mass with slightly lobulated margins which measures 6 x 7 mm. This is within a band of more dense tissue. There are some minimal internal vascularity and no significant posterior features. us Chelo Hughespolomiguel [facility] MAMMO PROCEDURES Final Result * (ABNORMAL) Diagnostic Mammogram Right W Brent (12/10/2024 8:23 AM RESIDENTIAL CARPET INSTALLER) Anatomical Region Laterality Modality Breast Right Mammography 12/10/2024 9:58 AM RESIDENTIAL CARPET INSTALLER Impressions 12/10/2024 9:58 AM RESIDENTIAL CARPET INSTALLER Developing focal asymmetry in the upper outer right breast. On targeted ultrasound there is a oval hypoechoic mass identified at 9:00 about 6 cm from the nipple. Further evaluation with ultrasound-guided biopsy is recommended. Results and recommendations were discussed with the patient at the conclusion of the exam and all questions answered. Patient with the practice nurse will be scheduled to return to the breast center for right breast biopsy. OVERALL FINAL ASSESSMENT: SUSPICIOUS. BI-RADS Category 4B: Moderate suspicion for malignancy. RECOMMENDATION: Ultrasound-guided biopsy of the right breast. Electronically signed by: EVA DAVENPORT MD Narrative 12/10/2024 9:58 AM RESIDENTIAL CARPET INSTALLER EXAMINATION: RIGHT UNILATERAL DIGITAL DIAGNOSTIC MAMMOGRAM AND DIGITAL BREAST TOMOSYNTHESIS; RIGHT BREAST SONOGRAM HISTORY: 74-year-old female called back from screening mammogram for developing focal asymmetry upper outer right breast. Patient has had some reported weight loss over the last few years which was intentional. COMPARISON: Multiple priors dating back to 2019 TECHNIQUE: Full field digital mammographic views of the RIGHT breast were performed, including computer aided detection (CAD) and digital breast tomosynthesis (DBT). Directed ultrasound evaluation of the RIGHT breast was performed. BREAST PARENCHYMAL COMPOSITION: There are scattered areas of fibroglandular density. MAMMOGRAM FINDINGS: Focal asymmetry persists in the upper outer right breast on spot compression images. This has a wispy appearance on the lateral view with a more focal oval mass identified around 9:00 at mid depth. SONOGRAM FINDINGS: Targeted ultrasound demonstrates mixed echogenicity tissue within the right breast from 9-10:00. At 9:00, 6 cm from the nipple there is an oval hypoechoic mass with slightly lobulated margins which measures 6 x 7 mm. This is within a band of more dense tissue. There are some minimal internal vascularity and no significant posterior features. Chelo Holt DO IMG MAMMO PROCEDURES Final Result * (ABNORMAL) Screening Mammogram Bilateral W Brent (11/10/2024 10:49 AM RESIDENTIAL CARPET INSTALLER) Anatomical Region Laterality Modality Breast Bilateral Mammography 11/10/2024 12:1 6 PM RESIDENTIAL CARPET INSTALLER Impressions 11/10/2024 12:16 PM RESIDENTIAL CARPET INSTALLER There is a developing focal asymmetry in the upper outer quadrant of the right breast with possibly subtle distortion on the right CC view. Additional imaging is recommended. FINAL ASSESSMENT: BI-RADS Category 0: Incomplete - Need Additional Imaging Evaluation. RECOMMENDATION: Findings in the right breast require additional evaluation. Diagnostic mammogram and possible ultrasound images of the right breast are recommended at this time. Electronically signed by: MD Rosalinda HELMS 11/10/2024 12:16 PM RESIDENTIAL CARPET INSTALLER EXAMINATION: BILATERAL SCREENING MAMMOGRAM COMPARISON: All prior mammograms dating back to 2019. TECHNIQUE: Full-field 2D and digital breast tomosynthesis (DBT) images were obtained. CAD was utilized. BREAST PARENCHYMAL COMPOSITION: There are scattered areas of fibroglandular density. FINDINGS: There is a developing focal asymmetry in the upper outer right breast with some questionable associated distortion on the right CC. No new suspicious abnormality in the left breast on mammogram. Self Screening Mammogram IMG MAMMO PROCEDURES Fi nal Result from Last 3 Months Insurance MEDICARE [facility] MEDICARE [facility] Advance Directives For more information, please contact: [phone] Documents on File Type Date Recorded Patient Recruiting Operations Consultant Expl anation ADVANCE DIRECTIVE 03/11/2024 9:47 PM POWER OF CLINICAL NURSING COORDINATOR-MEDICAL * Full Code (Latest Code Status on File) Date Activated Date Inactivated Comments 08/19/2024 11:24 PM 08/20/2024 8:17 PM * Full Code Date Activated Date Inactivated Comments 03/13/2024 6:55 AM 03/14/2024 3:29 PM Care Teams [place] Relationship Specialty Start Date End Date Chelo HoltDO [facility] [address] F[address] [place] [address] PCP - General Family Medicine 09/26/23 Ortiz Gallardo MD [address] [place] [address] Consulting Physician Neurosurgery 03/14/24
--- OUTSIDE RECORDS SUMMARY | 2025-01-26 13:34 | XMS_ITS | Clinical Summary ---
Author Organization [facility] Address [address] [place] [address] Care Team Providers Care Video Network Engineer Name Role Phone Chelo Holt DO Primary Care Provider [phone] Ortiz Gallardo MD Unavailable [phone] Allergies Active Allergy Reactions Criticality Noted Date [...] muscle spasms 4 Active cholecalciferol (VITAMIN D-3) 70419 unit capsuleIndications: Vitamin D Deficiency Take 1 [...] Acute CVA (cerebrovascular accident) 08/19/2024 Aneurysm 03/13/2024 Encounters Date Type Department Care Team Description 01/22/2025 Orders Only [facility] Surgery [address] [place] [address] Jaz Reyes MD PhD Ductal carcinoma in situ (DCIS) of right breast (Primary Dx) 01/15/2025 Telephone [facility] Breast Imaging [facility] ([facility]) [address] [place] [address] Adriane Mai Test Results (Right breast biopsy 01/13/25 ) 01/13/2025 11:00 AM CDT - 01/13/2025 11:59 PM CDT Hospital Encounter [facility] Imaging and Radiology [address] [place] [address] Abnormal mammogram Discharge Disposition: Discharge to home or self care 01/13/2025 10:12 AM CDT - 01/13/2025 11:59 PM CDT Hospital Encounter [address] [address] Abnormal mammogram Discharge Disposition: Discharge to home or self care 12/10/2024 8:05 AM SCRAP CARRIER - 12/10/2024 11:59 PM SCRAP CARRIER Hospital Encounter [address] [address] Unspecified lump in the right breast, upper outer quadrant Discharge Disposition: Discharge to home or self care 12/10/2024 8:05 AM SCRAP CARRIER - 12/10/2024 11:59 PM SCRAP CARRIER Hospital Encounter [facility] Radiology [address] [place] [address] Unspecified lump in the right breast, upper outer quadrant Discharge Disposition: Discharge to home or self care 11/10/2024 10:14 AM SCRAP CARRIER - 11/10/2024 11:59 PM SCRAP CARRIER Hospital Encounter [facility] [address] [place] [address] Visit for screening mammogram Discharge Disposition: Discharge to home or self care from Last 3 Months Immunizations Immunization Administration Dates Next Due Influenza, Quadrivalent, Rec ombinant, Egg Free, Preservative Free, Intramuscular 07/30/2019 Influenza, Quadrivalent, Spl it, Preservative Free, Intramuscular 07/11/2018 Pneumococcal Polysaccharide PPV23 04/21/2018 Tdap 03/03/2019 Surgical History Surgery Date Site/Laterality Comments COLONOSCOPY 10/14/2021 - 10/13/2022 DILATION AND CURETTAGE OF UTERUS 10/14/2018 - 10/13/2019 CHOLECYSTECTOMY 10/14/1990 - 10/13/1991 TONSILLECTOMY 10/14/1958 - 10/13/1959 ANGIO SELECTIVE INTERNAL CAROTID RIGHT 08/19/2024 Ri ght BREAST BIOPSY 01/13/2025 Right Medical History Medical History Date Comments Hypertension Hypothyroidism PONV (postoperative nausea and vomiting) Motion sickness Dizziness HL (hearing loss) Family History Medical History Relation Name Comments Diabetes Brother Facundo Diabetes Father Andrews Heart attack Father Andrews Heart disease Father Anderws Snoring Father Andrews Diabetes Maternal Grandmother Deya Stroke Maternal Grandmother Deya Breast cancer Maternal Half-Sister matern al aunt Diabetes Mother Paula Hypertension Mother Paula Snoring Mother Paula Stroke Mother Paula Cancer Paternal Grandfather Vijay Diabetes Paternal Grandmother Brenda Ginger Diabetes Sister Eleanor Ovarian cancer Neg Hx Pancreatic cancer Neg Hx Prostate cancer Neg Hx Relation Name Status Comments Brother Facundo Father Andrews Maternal Grandmother Deya Maternal Half-Sister Mother Paula Paternal Grandfather Vijay Paternal Grandmother Brenda Ginger Sister Eleanor Social History Tobacco Use Types Packs/Day Years Used Date Smoking Tobacco: Never Smokeless Tobacco: Never Tobacco Cessation:Counseling Given: Not Answered [facility] Utilities Answer Date Recorded In the past 12 months has th [employer] electric, gas, oil, or water company threatened to shut off services in your [...] often do you attend chur ch or lutheran services? Never 08/20/2024 Do you belong to any clubs o r organizations such as mandaen groups, unions, fraternal or athletic groups, or [...] on file Legal Sex Female 9:44 AM SCRAP CARRIER Gender Identity Female 01/15/2024 4:26 PM CDT Sexual Orientation Straight 01/15/2024 4: 26 PM CDT Obstetrics History Para Term AB IAB SAB Ectopic Multiple Livin g Live Births 2 2 2 Date Outcome GA Total Labor Labor/2nd/3rd Weight Sex Type Anes PTL Queenie A1 A5 Name Clin Term Term Last Filed Vital Signs Vital Sign Reading Time Taken Comments Blood Pressure 143/71 09/09/2024 10:31 AM SCRAP CARRIER Pulse 71 09/09/2024 10:31 AM SCRAP CARRIER Temperature 36.6 C (97.8 F) 08/20/2024 12:47 PM SCRAP CARRIER Respiratory Rate 20 08/20/2024 12:47 PM SCRAP CARRIER Oxygen Saturation 94% 08/20/2024 12:47 PM SCRAP CARRIER Inhaled Oxygen Concentration - - Weight 81.6 kg (180 lb) 09/09/2024 10:31 AM SCRAP CARRIER Height 162.6 cm (5' 4 ) 09/09/2024 10:31 AM SCRAP CARRIER Body Mass Index 30.9 09/09/2024 10:31 AM SCRAP CARRIER Plan of Treatment Health Maintenance Due Date Last Done Comments Colon Cancer Screening-Colonoscopy 1950 Hepatitis C Screening 1950 Osteoporosis Screening-Bone Density Scan 1950 Hepatitis B Screening 1969 Zoster Vaccine (1 of 2) 2001 Well Visit 65+ 2016 Pneumococcal vaccine 65+ (2 of 2 - PCV) 04/21/2019 0 04/21/2018 Influenza Vaccine (Season Ended) 2025 07/30/20 19, 07/11/2018 Depression Screening 08/19/2025 08/19/2024, 08/19/20 24 Fall Risk Assessment 08/20/2025 08/20/2024 Breast Cancer Screening-Mammogram 11/10/2025 025 DTaP/Tdap/Td Vaccine (2 - Td or Tdap) 03/03/2029 Medical Devices Implanted Type Area Web Analytics Developer Device Identifier Shelf Expiration Date Model / Serial / Lot [employer] System Embolization Web Single Layer 8mm X 3mm W2-8-3 - [id number] Implanted:Qty: 1 on 03/13/2024 by Rocael Rivera MD at [facility] [employer] 09/12/2027 W2- 8-3 / / [id number] [employer] Device 5fr Closure Celt Acd Vascular Sterile Latex Free Disposable Frances Kclt-05 - [id number] Implanted:Qty: 1 on 08/19/2024 by Gallito Disla MD at [facility] [employer] 12/05/2026 KCLT-05 / / [id number] Procedures Procedure Name Priority Date/Time Associated Diagnosis [...] Read Routine (OP Routine) 12/10/2024 9:24 AM SCRAP CARRIER Unspecified lump in the right breast, upper outer quadrant DIAGNOSTIC MAMMOGRAM RIGHT W BRENT Schedule Routine, Read Routine (OP Routine) 12/10/2024 8:23 AM SCRAP CARRIER Unspecified lump in the right breast, upper outer quadrant SCREENING MAMMOGRAM BILATERAL W BRENT Schedule Routine, Read Routine (OP Routine) 11/10/2024 10:49 AM SCRAP CARRIER Visit for screening mammogram from Last 3 Months Results * Surgical pathology (01/13/2025 1:48 PM CDT) Tissue (Breast biopsy, needle core) 01/13/2025 11:35 AM CDT Narrative PATHOLOGY CH - 01/15/2025 12:19 PM CDT [facility] results best viewed via link to PDF [facility] Department of Pathology [address] [place] [address] Note to Patients: This report may [...] with Addendum Patient Name: ALICIA PATEL [address]: [address] [place] [id number] Gender: F : 1950 (Age: 74) Service: Location: Hospital #: [id number] Patient Type: Ancillary Taken: 01/13/2025 Received: 01/13/2025 Accessioned: 01/13/2025 Reported: 01/15/2025 Physician(s):Jose Verde DO Diagnosis: A. 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 Report Electronically Reviewed and Signed Out [...] on Block Number(s): A1 METHODS Fixative: Formalin CAP VERSION: Breast Biomarker Reporting 1.5.0.1 Arnulfo Cedillo M.D.Report Electronically Reviewed and Signed Out By Arnulfo Cedillo M.D. 01/19/2025 17:48:38 Specimen(s) Received: A: Right breast cores 9:00 6CMFN Microscopic Description: Core biopsy material demonstrates mildly to moderately pleomorphic ductal epithelial cells arranged in cribriform and papillary patterns against a hyalinized stroma [facility] IHC stain with appropriate control also reviewed demonstrates a surrounding myoepithelial layer around much of the periphery of the cellular nests. In summary, biopsy material demonstrates a ductal carcinoma with cribriform and papillary features. The differential diagnosis includes encapsulated papillary carcinoma and solid papillary carcinoma as well as others. Additionally, the entire lesion requires evaluation to exclude a definitively invasive component. ER/PA testing will be obtained and reported in [...] compliance with ASCO/CAP guidelines. Myah Nick R.N., P.A./Arnulfo Cedillo M.D. REPORT IMAGES AND SCANNED DOCUMENTS, IF INCLUDED, ONLY VIEWABLE IN PDF VERSION OF REPORT The performance characteristics of some immunohistochemical stains, fluorescence in-situ hybridization tests and immunophenotyping by flow cytometry cited in this report (if any) were determined by the Surgical Pathology Department at [facility] as part of an ongoing principal quality engineer program and in compliance with federally mandated [...] characteristics determined by the Surgical Pathology Department [facility]. It has not been cleared or approved by the U. S. Food and Drug Administration. Note for decalcified specimens: This assay has not been validated on decalcified tissues. Results should be interpreted with caution given the possibility of false negativity on decalcified specimens Chelo Holt DO LAB PATHOLOGY ORDERABLES F inal Result PATHOLOGY [address] [place] [address] * Brent Post Clip Placement Right (01/13/2025 [...] be discussed with the patient by [facility] or referring provider staff and will [...] cores were obtained through the lesion. A [place]-shaped tissue marker clip was then placed at [...] Electronically signed by: Mary Perez M.D. Chelo Holt DO IMG MAMMO PROCEDURES Edite d Result [...] will be discussed with the patient by [facility] or referring provider staff and will [...] in expected position. us Chelo Holt DO [facility] MAMMO PROCEDURES Edite d Result - Final * US Breast Right Limited (12/10/2024 9:24 AM SCRAP CARRIER) Anatomical Region Laterality Modality Breast Right Ultrasound 12/10/2024 9:58 AM SCRAP CARRIER Impressions 12/10/2024 9:58 AM SCRAP CARRIER Developing focal asymmetry in the upper outer [...] EVA DAVENPORT MD Narrative 12/10/2024 9:58 AM SCRAP CARRIER EXAMINATION: RIGHT UNILATERAL DIGITAL DIAGNOSTIC MAMMOGRAM AND [...] and no significant posterior features. us Chelo Holt DO [facility] MAMMO PROCEDURES Final Result * (ABNORMAL) Diagnostic Mammogram Right W Brent (12/10/2024 8:23 AM SCRAP CARRIER) Anatomical Region Laterality Modality Breast Right Mammography 12/10/2024 9:58 AM SCRAP CARRIER Impressions 12/10/2024 9:58 AM SCRAP CARRIER Developing focal asymmetry in the upper outer [...] EVA DAVENPORT MD Narrative 12/10/2024 9:58 AM SCRAP CARRIER EXAMINATION: RIGHT UNILATERAL DIGITAL DIAGNOSTIC MAMMOGRAM AND [...] Mammogram Bilateral W Brent (11/10/2024 10:49 AM SCRAP CARRIER) Anatomical Region Laterality Modality Breast Bilateral Mammography 11/10/2024 12:1 6 PM SCRAP CARRIER Impressions 11/10/2024 12:16 PM SCRAP CARRIER There is a developing focal asymmetry in [...] by: MD Rosalinda HELMS 11/10/2024 12:16 PM SCRAP CARRIER EXAMINATION: BILATERAL SCREENING MAMMOGRAM COMPARISON: All prior [...] Result from Last 3 Months Insurance MEDICARE [facility] MEDICARE [facility] Advance Directives For more information, please contact: [phone] Documents on File Type Date Recorded Patient Pattern Maker Expl anation ADVANCE DIRECTIVE 03/11/2024 9:47 PM POWER OF CYLINDER VALVE REPAIRER-MEDICAL * Full Code (Latest Code Status on File) Date Activated Date Inactivated Comments 08/19/2024 11:24 PM 08/20/2024 8:17 PM * Full Code Date Activated Date Inactivated Comments 03/13/2024 6:55 AM 03/14/2024 3:29 PM Care Teams Video Network Engineer Relationship Specialty Start Date End Date Chelo Holt, DO [facility] [address] [place] [address] PCP - General Family Medicine 09/26/23 Ortiz Gallardo MD [address] [place] [address] Consulting Physician Neurosurgery 03/14/24
--- OUTSIDE RECORDS SUMMARY | 2025-01-26 13:34 | XMS_ITS | Continuity of Care Document ---
Author Organization [facility] Address [address] [place] [address] [place] [address] Phone Care Team Providers Care Medical Office Technologist Name Role Phone Ramses Srivastava OD Unavailable Unavailable Allergies, Adverse Reactions, Alerts Substance Reaction Status Criticality HYDROCODONE BITARTRATE Active No In formation acetaminophen Active No Information Medications Medication Instructions Dosage Effective Dates (start - stop) Status Comments doxazosin 2 mg tablet take one tablet daily - Active Synthroid 100 mcg tablet take one tablet daily - Active ibuprofen 800 mg tablet take one tablet daily - Active aspirin 325 mg tablet take 1 tablet by o ral route every day 325 MG - Active AREDS 2 ORAL CAPSULE take one tablet daily - Active Calcium 600 + D(3) 600 mg calcium-200 unit capsule take one tablet daily - Active Vitamin D3 1,000 unit capsule take one tablet daily - Active Procedures Procedure Date SCODI, GDX Posterior Segment SCODI, Posterior Segment Office/outpatient Visit, Est Office/outpatient Visit, Est Office Consultation Visual Field Examination(s) Corneal Pachymetry Fundus Photography W/ Report Advance Directives Directive Yes / No Effective Date File Name No Information Encounters Encounter Description Practice Location Reason(s) For Visit Diagnoses Date Provider Providers Copied on Encounter [facility], [id number] [place] [address] [address], [place], [place], [address], [place] tel:[phone] [place] Professional OCT ON only for Dr. Irvin (chief complaint) No Information Sep-0 5-201 8 Atif OD Ramses. [address] [facility], [address]th Floor, [place], [address], [place]. tel:[phone] Referring Provider: Cuba Irvin OD, [facility] [address] [place], [address]. tel:[phone] [facility], [address], [place], [place], [id number], [place] [phone] [facility] Professional No Information Aug-2 3-201 8 Jesus Sandersonson. [address] [facility], [facility] [place], [address], [place]. tel:[phone] Office/outpati ent Visit, [facility], [address], [place], [place], [address], [place] [phone] [facility] Professional No Information Oct-2 0-201 0 Wankum Reginald. [address], [address] [place], [address], [place]. tel:[phone] Referring Provider: Danisha Liang OD [facility] [address] [place], [address]. tel:[phone] Office/outpati ent Visit, [facility], [address], [place], [place], [address], [place] [phone] [facility] Professional No Information Dec-0 8-200 9 Wankum Reginald. [address], [address] [place], [address], [place]. tel:[phone] Referring Provider: Cuba Irvin OD [facility] [address] [place], [address]. tel:[phone] Office Consultation [facility], [address], [place], [place], [address], [place] tel:[phone] [facility] Professional No Information 9 Osorio Montelongo. [address] [facility], [address], [place], [place], [address], [place]. tel:[phone] Referring Provider: Danisha Liang OD [address], [place], [address]. tel:[phone] Family History Family Member Type Diagnosis Age At Onset Problem (finding) Family history of Diabe hue mellitus Payers Payer name Insurance type Covered green party ID Authoriza tion(s) Medicare [facility] [id number] [employer] [id number] Social History Type Description Quantity Date Captured Comments Alcohol Use Details Unknown Caffeine Use Details Unknown Tobacco Use Status No Information Smoking Status No Information Sex Female Chief Complaint And Reason For Visit From encounter dated '06/18/2018 08:00'. JUL ON only for Dr. Irvin (chief complaint) Reason For Referral Reason For Referral No Information History Of Present Illness Encounter Date Complaint History Of Prese nt Illness OCT ON only for Dr. Irvin Functional Status Date Functional Assessmen t No Information Instructions Date Instruction Additional Infor mation No Information Assessments Type Assessment Date No Information Patient Care Teams Name Effective Dates (start - stop) Status Members No Information
== END 2025-01-26 12:44 | disposition home or self-care (01) ==
PROVIDERS: PCP Family Medicine; Visit Provider Family Medicine
DX: M85.852 Other specified disorders of bone density and structure, left thigh (principal); M85.851 Other specified disorders of bone density and structure, right thigh
CPT/HCPCS: 77080

== ENCOUNTER 2025-02-08 13:42 | Outpatient (CLI) | payer MEDICARE, OTHER, SELFPAY ==
--- NOTE | ~2025-02-08 | XR_ITS ---
CHEST RADIOGRAPH, PA AND LATERAL CLINICAL HISTORY: Persistent cough x 1 wk, non smoker, recent breast ca dx . COMPARISON: None TECHNIQUE: PA and lateral views of the chest. FINDINGS Hiatal hernia. The remainder of the cardiomediastinal silhouette is otherwise unremarkable. The lungs are clear. The lungs are clear. IMPRESSION: No focal infiltrate or effusion. Reviewed, dictated and finalized at location A.
== END 2025-02-08 13:43 | disposition home or self-care (01) ==
LOC: GOSHIMG 13:43
PROVIDERS: PCP Family Medicine; Visit Provider Family Medicine
DX: R05.9 Cough, unspecified (principal)
CPT/HCPCS: 71046